=== PATIENT | female | born 1930 | race Caucasian/White ===

== ENCOUNTER 2016-07-02 07:44 | Day surgery (SDC) | payer MEDICARE, BC, OTHER ==
[2016-07-01 12:54] LABS: HEMATOCRIT 38.8 % (36.0-48.0); HEMOGLOBIN 12.4 g/dL (12.0-16.0)
[2016-07-01 13:15] LABS: BUN (BLOOD UREA NITROGEN) 13 MG/DL (6-23); CALCIUM, SERUM 9.2 MG/DL (8.5-10.4); CHLORIDE, SERUM 108 MMOL/L (96-112); CO2 (CARBON DIOXIDE) 35 MMOL/L (24-34); GFR AFRICAN AMERICAN 78 ML/MIN (>=60); GFR NON AFRICAN AMERICAN 68 ML/MIN (>=60); GLUCOSE, SERUM 100 MG/DL (60-99); POTASSIUM, SERUM 4.9 MMOL/L (3.5-5.3); SODIUM, SERUM 148 MMOL/L (135-148)
[~2016-07-02 07:44] MED LIST: ADVAIR INH; ADVAIR250 INH; ASAB PO; FOSAMAX70 MG PO; MIRALAX POWDER1 PKT PO; NORCO1 TA1 PO; OCUVITE PO; PRAVACHOL40 MG PO; PRILO PO; PRIN10 PO; SPIRIVA INH; STOOL SOFTEN240 MG PO
== END 2016-07-02 14:07 | disposition home or self-care (01) ==
LOC: SDC 07:44
PROVIDERS: Ophthalmology
PROC: 08RJ3JZ Replacement of Right Lens with Synthetic Substitute, Percutaneous Approach (ICD-10-PCS; principal; 2016-07-02 10:00)
DX: H25.11 Age-related nuclear cataract, right eye (principal); I10 Essential (primary) hypertension; J44.9 Chronic obstructive pulmonary disease, unspecified; G47.33 Obstructive sleep apnea (adult) (pediatric); M06.9 Rheumatoid arthritis, unspecified; Z88.0 Allergy status to penicillin; Z98.51 Tubal ligation status; Z90.49 Acquired absence of other specified parts of digestive tract; Z79.82 Long term (current) use of aspirin; Z79.891 Long term (current) use of opiate analgesic
CPT/HCPCS: 80048; 85014; 85018; 93005; J2150; J2405; J3370; V2787